=== PATIENT | female | born 1935 | race Caucasian/White ===

== ENCOUNTER 2016-07-27 15:40 | Inpatient (IN) | payer MEDICARE, MEDICAID ==
[~2016-07-27] VITALS: Ht 157.5 cm; Wt 75.1 kg
--- NOTE | ~2016-07-27 | OR ---
PATIENT'S NAME: FELICIA LOMBARDO [facility] AGE: 80 Y [address] ROOM: [address] [address] LOCATION: [facility] [place] DATE: 07/27/2016 OR/Procedure Report DISCHARGE DATE: FAMILY PHYSICIAN: Jin Orozco MD ATTENDING PHYSICIAN: Karmen Greer SURGEON: Frida Landis MD PARAPROFESSIONAL AIDE TEACHER: DATE OF PROCEDURE: 07/28/2016 PREOPERATIVE DIAGNOSES: 1. Acute renal failure. 2. Severe and bilateral hydronephrosis. 3. History of severe radiation cystitis. POSTOPERATIVE DIAGNOSES: 1. Acute renal failure. 2. Severe and bilateral hydronephrosis. 3. History of severe radiation cystitis. PROCEDURE: Cystoscopy with attempted retrogrades, but unable to identify ureteral orifices on either side. ANESTHESIA: General. INDICATION: This is an 80-year-old lady admitted with acute renal failure. Her creatinine today is 5.3. She had an ultrasound done, which revealed severe and bilateral hydronephrosis. The right kidney was atrophic. We have relevant history together. Over 3 years ago, she was evaluated for gross hematuria. She was felt to have radiation cystitis at that time. Time has proven that diagnosis is likely correct. She had no malignant changes. 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 With the severe hydronephrosis and the acute change in her creatinine, Dr. Greer had consulted me. Our plan is to proceed with cystoscopy. Hopefully, we will be able to find orifices. If not, she will have to consider a percutaneous drainage. DESCRIPTION OF PROCEDURE: Having obtained her informed consent, the patient was taken to the operating room. She was prepped and draped sterilely and in lithotomy position. A brief general anesthetic was administered. A 21-Portuguese cystoscope was assembled and guided into the urethra. Fortunately, the mucosa is much improved from previous. She has some scattered areas consistent with her diagnosis of radiation cystitis. She has no papillary lesions. However, she has scarring and trabeculation consistent with her history of radiation. We spent a great deal of time using the 30- and 70-degree lenses and probing PATIENT'S NAME: FELICIA LOMBARDO [facility] AGE: 80 Y [address] ROOM: [address] [address] LOCATION: [facility] [place] ADMIT DATE: 07/27/2016 OR/Procedure Report DISCHARGE DATE: FAMILY PHYSICIAN: Jin Orozco MD ATTENDING PHYSICIAN: Karmen Greer gently with a guidewire. I cannot find anything that resembles orifices. With her creatinine of 5 and the severe hydronephrosis, she is not effluxing anywhere. Ultimately, I was unable to identify either side. The bladder was drained and the case was concluded. The patient tolerated the procedure well. Blood loss was negligible. No specimens were sent. The patient returned to the Recovery, awake and in stable condition. I will recommend bilateral percutaneous nephrostomy drainage with internalization of stents. FRIDA LANDIS MD SFH/modl /[id number] CC: MD Jono Clark MD d: 07/28/16 2209 t: 08/01/16 1011, OPERATIVE SUMMARY
--- NOTE | ~2016-07-27 | HP ---
PATIENT'S NAME: FELICIA LOMBARDO [facility] AGE: 80 Y [address] ROOM: [place] [address] [place] [facility] [place]: 07/27/2016 History & Physical DISCHARGE DATE: FAMILY PHYSICIAN: Jin Orozco MD ATTENDING PHYSICIAN: Karmen Greer DATE OF SERVICE: CHIEF COMPLAINT: Elevated BUN and creatinine. HISTORY OF PRESENT ILLNESS: This is an 80-year-old female with a history of diabetes for the past 5 to 10 years. She also has a history of hypertension. She has a history of retinopathy but no neuropathy. The patient presented yesterday to her primary care physician, Dr. Jin Orozco clinic. Her creatinine was found to be elevated at that point of time. She was then referred to Dr. Greer's clinic today. Dr. Greer then asked the hospitalist team to admit the patient for acute kidney injury. The patient's creatinine was found to be 5.43 yesterday in clinic. She states that she has been tired for the past couple years. She complains of urinary incontinence and also some burning sensation. Denies any NSAID use. No ELDER inhibitor or ARB use reported. Her baseline creatinine in 2016 about 3 months ago was 1.99. The patient had a history of obstructive uropathy in 2012, that was managed by Dr. Gutierrez. She currently does not report any abdominal pain. Denies any chest pain. Denies any shortness of breath. Denies any head trauma, loss of consciousness, seizures. No other complaints at this point of time. REVIEW OF SYSTEMS: A 10-point review of system was done and was otherwise negative except as mentioned above. ALLERGIES: 1. SULFA. 2. PENICILLIN. HOME MEDICATIONS: Per JUL. PAST MEDICAL HISTORY: 1. Diabetes mellitus. 2. Diabetic retinopathy. 3. Hypertension. PATIENT'S NAME: FELICIA LOMBARDO [facility] AGE: 80 Y [address] ROOM: [place] [address] [place] [facility] [place]: 07/27/2016 History & Physical DISCHARGE DATE: FAMILY PHYSICIAN: Jin Orozco MD ATTENDING PHYSICIAN: Karmen Greer 4. Obesity. 5. Peptic ulcer disease. 6. Depression. 7. Dyslipidemia. 8. Left hydronephrosis in the past. PAST SURGICAL HISTORY: 1. Cholecystectomy. 2. Cardiac catheterization. 3. Cystoscopy. FAMILY HISTORY: Mother with kidney problem. Son with pancreatic cancer and also kidney issues. SOCIAL HISTORY: Lives in [place], [place]. No history of alcohol or tobacco is reported. PHYSICAL EXAMINATION: VITAL SIGNS: Temperature 97.5, pulse 74 and regular, respirations 20, blood pressure 138/77, saturation 100% on room air. GENERAL: The patient is alert and oriented x3. Answers all questions appropriately. No acute distress. HEENT: Head: Normocephalic, atraumatic. Pupils are equal, round, and reactive to light. Extraocular muscles are intact. Oropharynx moist. NECK: Supple. No nuchal rigidity. No lymphadenopathy. HEART: Regular rate and rhythm. LUNGS: Clear to auscultation bilaterally. ABDOMEN: Soft, nontender, nondistended. Bowel sounds are present. EXTREMITIES: No clubbing, cyanosis, or edema. VASCULAR: Pulses 2+ distally bilaterally. NEUROLOGIC: The patient is alert and oriented x3. Follows all commands. Moves all extremities. Cranial nerves 2 through 12 are grossly intact. DIAGNOSTIC STUDIES: A CBC was done, that showed a white count of 7.3, hemoglobin 9.3, hematocrit 28.7, platelets 159. A CMP showed sodium 139, potassium 4.6, chloride 108, bicarb 20, BUN 58, creatinine 5.4, glucose 126, calcium 8.7. Total protein 7.2, albumin 3.2, AST 20, ALT 20, alkaline phosphatase 130, total bilirubin 0.4, anion gap 15.6, globulin 4.0. GFR 8. UA showed 3+ turbidity with a pH of 6.1, leukocytes and bacteria is pending at this point of time. Ultrasound of the kidney has been ordered and is pending at this point of time. UA is pending. ASSESSMENT AND PLAN: PATIENT'S NAME: FELICIA LOMBARDO [facility] AGE: 80 Y [address] ROOM: [address] [address] [place] [facility] [place]: 07/27/2016 History & Physical DISCHARGE DATE: FAMILY PHYSICIAN: Jin Orozco MD ATTENDING PHYSICIAN: Karmen Greer Harlan An 80-year-old female presenting with acute kidney injury. 1. Acute kidney injury. Unsure about the cause of acute kidney injury. The patient was replaced on bicarb drip per Renal recommendations. Further plan per Dr. Greer. Renal ultrasound is pending at this point of time. 2. Hypertension. Continue home medication. 3. Diabetes. We will do regular Accu-Cheks for the patient. She is currently not on any antidiabetic medication. 4. Dyslipidemia. Continue statin. 5. Hypertension. Continue home medication. 6. Depression. Continue Celexa. 7. Deep vein thrombosis prophylaxis. SCD to legs. CODE STATUS: Full code. Discussed with the patient at the time of admission. GARRET DAVID MD MT/altagracia /[id number] D: [id number] T: [id number] HISTORY & PHYSICAL
--- NOTE | ~2016-07-27 | DS ---
PATIENT'S NAME: FELICIA LOMBARDO [facility] AGE: 80 Y [address] ROOM: [address] [address] LOCATION: [facility] [place] ADMIT DATE: 07/27/2016 Discharge Summary DISCHARGE DATE: 07/29/2016 FAMILY PHYSICIAN: Jin Orozco MD ATTENDING PHYSICIAN: Jono Greer PRIMARY DIAGNOSES: 1. Acute kidney injury. 2. Bilateral hydronephroses. 3. Obstructive uropathy. 4. Radiation cystitis. 5. History of gynecologic cancer, status post surgery and radiation treatment. 6. Diabetes mellitus, type 2. 7. Essential hypertension. 8. Hyperlipidemia. 9. Iron deficiency anemia. 10. Peptic ulcer disease. 11. Diabetic retinopathy. 12. Prior history of left-sided hydronephrosis, status post cystoscopy with stent placement in the distant past. OPERATIONS/PROCEDURES: Cystoscopy with attempt at ureteral stent placement was performed on 07/28/[address] Tod Gutierrez, urologist; unsuccessful. HISTORY OF PRESENTING ILLNESS AND REASON FOR ADMISSION: Please refer to the H and P dictated on 07/27/2016. HOSPITAL COURSE: The patient was admitted to the hospital as noted above with a presumptive diagnoses of acute kidney injury and severe bilateral hydronephroses. This was identified by ultrasound testing on the date of her admission. Urology was consulted. It was recommended to proceed with cystoscopy and bilateral ureteral stent placements. This was attempted on 07/28/2016 as described above, but Dr. Gutierrez was unsuccessful at identifying either orifice. The procedure was abandoned, and it was recommended to proceed with nephrostomy tube placement. Unfortunately, no interventional radiologist was available at this facility for more than 48 hours. It was felt by Nephrology and recommended that the procedure would be more urgent given that the patient has limited renal reserve, an atrophic right kidney, and persistently elevated creatinine, as well as apparent oliguria. I discussed this at some length with the patient and her family, and they did request transfer out. We did discuss the case with Dr. Rodriguez, hospitalist, at [facility] in [place], and she agreed to accept the patient in transfer. PATIENT'S NAME: FELICIA LOMBARDO [facility] AGE: 80 Y [address] ROOM: [address] [address] LOCATION: [facility] [place] ADMIT DATE: 07/27/2016 Discharge Summary DISCHARGE DATE: 07/29/2016 FAMILY PHYSICIAN: Jin Oorzco MD ATTENDING PHYSICIAN: Jono Greer DISCHARGE INSTRUCTIONS: DIET: NPO except for medications. ACTIVITY: She will remain on bedrest. MEDICATIONS: 1. Loratadine 10 mg p.o. q.48 hours. 2. Harrison 5/325 one tablet p.o. q.4 hours p.r.n. 3. D5 half-normal saline to run at 100 mL/hour. 4. Lidocaine for IV starts. 5. Iron 325 mg p.o. daily. 6. Citalopram 20 mg p.o. daily. 7. Vitamin D3 at 2000 units p.o. daily. 8. Atorvastatin 20 mg p.o. daily. 9. Protonix 40 mg p.o. daily. 10. Glucagon 1 mg subcu daily p.r.n. hypoglycemia. 11. D50 at 25 mL IV p.r.n. hypoglycemia. 12. Glucose tablet 16 g p.o. daily p.r.n. hypoglycemia. 13. Insulin aspart per sliding scale. 14. Timolol ophthalmic drops 0.5% applied b.i.d. 15. Xalatan ophthalmic drops 0.005% applied at h.s. 16. Carvedilol 12.5 mg p.o. b.i.d. FOLLOWUP: She will follow up with Dr. Rodriguez at the [facility] later today. She will be transported by ambulance. CONDITION ON DISCHARGE: Fair. Total time spent on discharge process is 45 minutes. MD MADELINE SHERIFF/altagracia /[id number] d: 07/29/16 1402 t: 07/30/16 1550, DISCHARGE SUMMARY
--- NOTE | ~2016-07-27 | CON ---
PATIENT'S NAME: FELICIA LOMBARDO [facility] AGE: 80 Y [address] ROOM: [address] [address] LOCATION: [facility] [place] ADMIT DATE: 07/27/2016 Consultation DISCHARGE DATE: FAMILY PHYSICIAN: Jin Orozco MD ATTENDING PHYSICIAN: Karmen Nunn DATE OF CONSULTATION: 07/27/2016 REQUESTING PHYSICIAN: Fritz Miner M.D. REASON FOR CONSULTATION: Elevated BUN and creatinine. HISTORY OF PRESENT ILLNESS: The patient is an 80-year-old white female with a history of diabetes for the last 5 to 10 years. She does have history of retinopathy, but no neuropathy. She has been hypertensive for quite sometime, but claims that her blood pressure has been fairly well controlled. The patient was in her usual state of health, and she was supposed to see her family physician for routine medical needs and she, however, had to defer this for quite some time because her son was ill and unfortunately he in April 2016. Yesterday, she went to see Dr. Jin Orozco and her creatinine was 5.43. At this point, she did not complain of any nausea or vomiting. She has been tired for the last 2 years, but she did not complain of excessive sleepiness. She has baseline dyspnea on exertion. She has been incontinent. There are no new medications. No nonsteroidals or CORNELISU-2 inhibitors. No ELDER inhibitors or ARBs. Her baseline creatinine from May 2013 was 1.5. On April 05, 2016, creatinine was 1.99. The patient did have a CT scan of the abdomen or pelvis on April 23, 2013, and there was moderate left-sided hydronephrosis, and she was taken care by Dr. Tod Gutierrez. Since the records have been purged, I do not know the details of this. The patient reports that she had a cancer of the uterus years ago and she was treated with radiation therapy. It seems that her ureteral obstruction could have been from radiation. The patient is currently admitted to the hospital for further workup and management. She did not notice any change in her urine output. ALLERGIES: ALLERGIC TO SULFA AND PENICILLIN. CURRENT MEDICATIONS: 1. Vitamin D3 2000 International Units a day. 2. Citalopram 20 mg a day. 3. Loratadine 10 mg a day. 4. Omeprazole 20 mg a day. PATIENT'S NAME: FELICIA LOMBARDO [facility] AGE: 80 Y [address] ROOM: [id number] [place], [place] [address] LOCATION: [facility] [place] ADMIT DATE: 07/27/2016 Consultation DISCHARGE DATE: FAMILY PHYSICIAN: Jin Orozco MD ATTENDING PHYSICIAN: Karmen Nunniaz 5. Spironolactone 25 mg a day. 6. Carvedilol 12.5 mg twice a day. 7. Atorvastatin 20 mg a day. 8. Iron 325 mg a day. PAST MEDICAL HISTORY: Diabetes mellitus, diabetic retinopathy, obesity, hypertension, peptic ulcer disease, depressive illness, hyperlipidemia, and left-sided hydronephrosis by history. PAST SURGICAL HISTORY: Cholecystectomy, cardiac catheterization, and cystoscopy. FAMILY HISTORY: Mother had kidney problem, but she was not on dialysis. Her son had history of pancreatic cancer and also had some kidney issues. Unfortunately, her son last year. SOCIAL HISTORY: The patient lives in [place], [place]. She is . She has 2 grown children. 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 No history of tobacco or alcohol. PHYSICAL EXAMINATION: GENERAL: The patient is an 80-year-old, white female, looks slightly pale. Not in acute distress. VITALS SIGNS: Temperature 98.6, pulse is 68, and systolic blood pressure 130 diastolic 64. Weight is 166.2 pounds. HEENT: Head is normocephalic. Pupils are round and equal. Normal eyelid and pale conjunctivae. Oral cavity clear. She has dentures. NECK: Trachea is central. No thyromegaly. No bruit. HEART: Sounds are audible. No added gallop or murmur. There is no peripheral rub. Pulses regular in rhythm. LUNGS: Bilaterally clear to auscultate. No intercostal retraction. ABDOMEN: Soft, nontender, and could not palpate the liver or spleen. No distended bladder palpable. EXTREMITIES: No clubbing or cyanosis. SKIN: No sign of vasculitis. LYMPHATICS: Could not palpate any lymphatics HIGHER PSYCHIATRIC FUNCTION: She has normal speech and memory. REVIEW OF SYSTEMS: GENERAL: She denies any fever, chills, or rigors. She lost 80 pounds intentionally over the last 3 years. She lost a lot of weight in 3 years and she is trying to lose weight. Her weight went down from 240 pounds to 158 pounds. She has approximately lost 80 pounds. Her diabetes, she is currently on diet control only. She has some sinus congestion, dyspnea on exertion, and PATIENT'S NAME: FELICIA LOMBARDO [facility] AGE: 80 Y [address] ROOM: [place] [address] LOCATION: [facility] [place] ADMIT DATE: 07/27/2016 Consultation DISCHARGE DATE: FAMILY PHYSICIAN: Jin Orozco MD ATTENDING PHYSICIAN: Karmen Nunn urinary incontinence. She is tired all the time. She has been weak over the last 1 week. HEENT: Denies any sore throat or sinus congestion. CARDIOVASCULAR: Denies any chest pain. RESPIRATORY: Denies any shortness of breath, cough, or wheezing. GASTROINTESTINAL: Occasional nausea. GENITOURINARY: Denies any dysuria, frequency. She has had hematuria in 2012. MUSCULOSKELETAL: Denies any joint pain or swelling. SKIN: Denies any rash or pruritus. IMMUNOLOGIC: Denies any allergies or hay fever. LYMPHATICS: Denies any lymph node enlargement HEMATOLOGIC: Denies easy bruising. ENDOCRINE: Denies any heat or cold intolerance. OUTPATIENT CODER: She has a history of uterine cancer. PSYCHIATRY: Denies any sadness, crying spells, poor concentration, or panic attack at this time, but she is on antidepressant. LABORATORY DATA: Urinalysis from April 05, 2016, shows protein more than 300 and blood trace. WBC more than 200, RBC less than 5. Blood work from July 27, 2015, shows a glucose 92, BUN 56, creatinine of 5.4, GFR of 7, sodium 136, potassium 4.9, chloride 101, bicarb 21, and calcium 8.4. ASSESSMENT: 1. [id number] kidney injury. Etiology is unclear. The patient appears slightly dehydrated, but we cannot rule out possibility of obstructive uropathy. As mentioned, however, she had left-sided hydronephrosis in 2012, and she had a cystoscopy at that time. The patient has been on omeprazole, which is her baseline medicine, but we cannot rule out possibility of interstitial nephritis. I notice that in March of 2016, the patient had proteinuria, but at that time had plenty of WBCs as well as bacteria, so I do wonder whether she had urinary tract infection at that time. 2. Hypertension. 3. Diabetes mellitus. 4. Diabetic neuropathy. 5. Metabolic acidosis. 6. History of uterine cancer. 7. History of obstructive uropathy. PLAN: I agree with her hospitalization and I will give her IV D5W with 3 amps of bicarbonate at a rate of 100 mL an hour for approximately 2 L. We will check urine for microscopic examination. We will check stat renal ultrasound to rule out obstructive processes. If there is any hydronephrosis, we will PATIENT'S NAME: FELICIA LOMBARDO [facility] AGE: 80 Y [address] ROOM: [place] [address] LOCATION: [facility] [place] ADMIT DATE: 07/27/2016 Consultation DISCHARGE DATE: FAMILY PHYSICIAN: Jin Orozco MD ATTENDING PHYSICIAN: Karmen Nunn invite urologist. I will hold her omeprazole for now. We will follow her renal function closely. She does not have any gross uremic features and does not need to be started on dialysis at this time. If she has active sediments in the urine, then will probably have to proceed with a CT-guided kidney biopsy. I would like to thank Dr. Miner for allowing me to participate in this patient's care. M FRANK NUNN MD MII/modl /[id number] CC: Jin Orozco MD d: 07/27/16 1658 t: 07/31/16 1000, CONSULTATION REPORT
[2016-07-27] MEDS ORDERED: TIMOPTIC XE 0.5%5 ML OPHTH (16:47)
[2016-07-27] MEDS ORDERED: XALATAN2.5 ML OPHTH (16:47)
[2016-07-27] MEDS ORDERED: LIPITOR20 M1 PO (16:48)
[2016-07-27] MEDS ORDERED: CELEXA20 MG PO (16:48)
[2016-07-27] MEDS ORDERED: ALDACTONE25 MG PO (16:48)
[2016-07-27] MEDS ORDERED: CLEAR EYES COMP15 ML OPHTH (16:49)
[2016-07-27] MEDS ORDERED: COREG12.5 MG PO (16:49)
[2016-07-27] MEDS ORDERED: FEOSOL325 MG PO (16:49)
[2016-07-27] MEDS ORDERED: PRILOSEC20 MG PO (16:50)
[2016-07-27] MEDS ORDERED: CLARITIN10 M3 PO (16:50)
[2016-07-27] MEDS ORDERED: VITAMIN D-32000 UNI1 PO (16:50)
--- NOTE | 2016-07-27 18:06 | NUR ---
PT is 80 y/o female admit for acute kidney injury for hospitalist. PT allergy to PCN,sulfa,and clindamycin. Red bracelet on. Alert and oriented x3. Resides at home by herself. She states her neighbors look in on her. Hx htn,NV,hyper- cholest,gerd,hiatal hernia,ulcer,endometrial CA,hematuria,sinus problems, glaucoma,left leg N/T. PT ambulates with a walker,which is at bedside. She states she saw her primary care yesterday and had lab done which showed abnormal kidney function. He set her up to see today and he sent her here.
[2016-07-27 19:22] LABS: BASOPHIL % 0.4 %; EOSINOPHIL # 0.1 K/uL (0.0-0.5); EOSINOPHIL % 1.8 %; HEMATOCRIT 28.7 % (30.0-46.0); HEMOGLOBIN 9.6 g/dL (10.0-15.0); IMMATURE GRANULOCYTE % 0.4 %; LYMPHOCYTE # 2.2 K/uL (0.8-4.0); LYMPHOCYTE % 30.4 %; MCH 28.7 pg (27.0-34.0); MCHC 33.4 gm/dL (32.0-36.5); MCV 85.9 fl (83.0-98.0); MONOCYTE # 0.5 K/uL (0.0-1.0); MPV 9.5 fl (9.4-12.4); NEUTROPHIL # (ANC) 4.4 K/uL (1.8-7.8); NRBC % 0 /100WBC (0-0.00); PLATELET COUNT 159 K/uL (150-450); RDW-CV 13.5 % (11.9-14.6); WBC 7.3 K/uL (4.0-11.0)
[2016-07-27 19:23] LABS: RBC 3.34 M/uL (3.00-5.00)
[2016-07-27 19:38] LABS: ALBUMIN 3.2 gm/dL (3.5-5.0); ANION GAP 15.6 (10.0-19.0); CALCIUM 8.7 mg/dL (8.5-10.5); POTASSIUM 4.6 mMol/L (3.7-5.1); TOTAL BILIRUBIN 0.4 mg/dL (0.0-1.5); TOTAL PROTEIN 7.2 g/dL (6.0-8.4)
[2016-07-27 19:43] LABS: CREATININE 5.4 mg/dL (0.5-1.1)
[2016-07-27 20:17] LABS: BILIRUBIN URINE NEGATIVE (NEGATIVE); BLOOD URINE 250 /UL (NEGATIVE); COLOR URINE YELLOW (YELLOW); GLUCOSE URINE NEGATIVE (NEGATIVE); KETONE URINE NEGATIVE (NEGATIVE); LEUKOCYTES URINE 500 /UL (NEGATIVE); NITRITE URINE NEGATIVE (NEGATIVE); PROTEIN URINE 30 mg/dL (NEGATIVE); SPEC GRAVITY URINE 1.005 (1.003-1.035); TURBIDITY URINE 3+ (CLEAR); UROBILINOGEN URINE NORMAL (NORMAL)
[2016-07-27 20:28] LABS: AMORPHOUS URINE 1+ (NEGATIVE); BACTERIA URINE MANY (NEGATIVE); WBC URINE FULL FIELD #/HPF (NEGATIVE)
[2016-07-27 20:29] LABS: WBC CLUMPS URINE MODERATE (NEGATIVE)
--- NOTE | 2016-07-28 03:47 | NUR ---
Significant Event: Patient is alert and oriented x 3. VSS on room air. VS q4 hours. Up with 1 assist, walker, and gait belt to bathroom. Incontinent of urine. Denies any pain. ACHS accuchecks. Mild scale. Left wrist IV with D5 sodium bicarb running at 100 ml/hr. Patient is pleasant and cooperative with cares. Follow up:
[2016-07-28 06:04] LABS: ALBUMIN 2.8 gm/dL (3.5-5.0); ANION GAP 13.4 (10.0-19.0); CALCIUM 8.2 mg/dL (8.5-10.5); PHOSPHORUS 4.9 mg/dL (2.5-4.9); POTASSIUM 4.4 mMol/L (3.7-5.1)
[2016-07-28 06:05] LABS: CREATININE 5.3 mg/dL (0.5-1.1)
--- NOTE | 2016-07-28 12:04 | NUR ---
SPOKE TO PATIENT REGARDING CM AND OUR ROLE. PATIENT IS PLANNING ON RETURNING HOME ONCE SHE IS READY FOR DISCHARGE. PATIENT DOES NOT ANTCIPATE ANY DISCHARGE NEEDS AT THIS TIME. CM WILL FOLLOW NEEDED.
--- NOTE | 2016-07-28 12:18 | NUR ---
I have examined the student charting and find it acceptable. Kath PERALTA
--- NOTE | 2016-07-28 14:29 | NUR ---
Patient is alert and oriented, VSS, on room air. 1 assist with walker and gait belt. IV to L) wrist infusing D5W with sodium bicarb at 100ml will be locked when bag is complete. Went down for a cystoscopy with bilateral stent placement around 1330. Accurate I/Os needed. Will continue to monitor urine output.
[2016-07-29 05:00] LABS: BASOPHIL % 0.2 %; HEMATOCRIT 28.9 % (30.0-46.0); HEMOGLOBIN 10.1 g/dL (10.0-15.0); IMMATURE GRANULOCYTE # 0.1 K/uL (0.0-0.3); IMMATURE GRANULOCYTE % 0.9 %; LYMPHOCYTE # 0.9 K/uL (0.8-4.0); LYMPHOCYTE % 13.4 %; MCH 28.7 pg (27.0-34.0); MCHC 34.9 gm/dL (32.0-36.5); MCV 82.1 fl (83.0-98.0); MONOCYTE # 0.3 K/uL (0.0-1.0); MONOCYTE % 4.1 %; MPV 9.2 fl (9.4-12.4); NEUTROPHIL # (ANC) 5.4 K/uL (1.8-7.8); NEUTROPHIL % 81.4 %; NRBC % 0 /100WBC (0-0.00); PLATELET COUNT 155 K/uL (150-450); RBC 3.52 M/uL (3.00-5.00); RDW-CV 13.6 % (11.9-14.6); WBC 6.7 K/uL (4.0-11.0)
[2016-07-29 05:15] LABS: ALBUMIN 2.9 gm/dL (3.5-5.0); ANION GAP 16.9 (10.0-19.0); CALCIUM 8.3 mg/dL (8.5-10.5); POTASSIUM 3.9 mMol/L (3.7-5.1)
--- NOTE | 2016-07-29 05:26 | NUR ---
Significant Event: Pt alert and oriented. UP standby assist with walker and shoes when out of bed. IV saline locked. Is incont of urine at all times. Home eye drops at bedside. Cont to monitor. Follow up:
[2016-07-29 05:32] LABS: CREATININE 5.2 mg/dL (0.5-1.1); PHOSPHORUS 1.2 mg/dL (2.5-4.9)
--- NOTE | 2016-07-29 14:05 | NUR ---
Recieved bed acceptance from Rahat Nguyen at [facility] about 1400. Stated room number would be 7721 in the [facility]. Report is to be called to [phone]. Ambulance crew alerted and notified of transfer. Gave report to dispatch.
--- NOTE | 2016-07-29 14:10 | NUR ---
Patient is an 80 year old female. She is alert and oriented, standy assist with a wheeled walker and gait belt. ACHS accuchecks on mild sliding scale, 2 units given for lunch. Diet controlled at home. She is incontinent of urine at times. She had an eye surgery earlier this week for cataracts on her right eye. History of hypertension, uterine cancer with radiation, arthritis, GERD, [place], glaucoma, and left leg cramping. She has glasses, a hearing aid in her right ear and a bruise to her left forearm. She has an IV in her left inner forearm that is saline locked. She went down for a cystoscopy with stent placement yesterday for her bilateral hydronephrosis but was not able to have the stents placed. Her vital signs have been stable, she is on room air.
[2016-12-04] MEDS ORDERED: COLESTID1 GM PO (12:40)
[2016-12-11] MEDS ORDERED: CLARITIN10 MG PO (11:25)
[2016-12-11] MEDS ORDERED: PRILOSEC20 MG PO (11:26)
[2016-12-11] MEDS ORDERED: LOPRESSOR25 MG PO (11:27)
[2016-12-11] MEDS ORDERED: SPIRONOLACTONE25 MG PO (11:27)
[2016-12-11] MEDS ORDERED: ARTIFICIAL TEA1 EACH OPHTH (11:30)
== END 2016-07-29 14:34 | disposition hospice, home (50) | DRG 683 ==
LOC: GMSU 15:51
PROVIDERS: Family Medicine; ADMIT Internal Medicine Nephrology
PROC: 0TJB8ZZ Inspection of Bladder, Via Natural or Artificial Opening Endoscopic (ICD-10-PCS; principal; 2016-07-28)
DX: N17.9 Acute kidney failure, unspecified (principal); N30.40 Irradiation cystitis without hematuria; E87.2 Acidosis; N13.9 Obstructive and reflux uropathy, unspecified; E11.22 Type 2 diabetes mellitus with diabetic chronic kidney disease; E86.0 Dehydration; N13.30 Unspecified hydronephrosis; E11.319 Type 2 diabetes mellitus with unspecified diabetic retinopathy without macular edema; I12.9 Hypertensive chronic kidney disease with stage 1 through stage 4 chronic kidney disease, or unspecified chronic kidney disease; N18.9 Chronic kidney disease, unspecified; E78.5 Hyperlipidemia, unspecified; D50.9 Iron deficiency anemia, unspecified; K27.9 Peptic ulcer, site unspecified, unspecified as acute or chronic, without hemorrhage or perforation; F32.9 Major depressive disorder, single episode, unspecified; Z85.42 Personal history of malignant neoplasm of other parts of uterus; R32 Unspecified urinary incontinence; D63.1 Anemia in chronic kidney disease
CPT/HCPCS: C1769; J7030; J7060

== ENCOUNTER → 2016-12-11 | Day surgery (SDC) | payer MEDICARE, MEDICAID ==
[~2016-12-11] VITALS: Ht 157.5 cm; Wt 75.0 kg
[~2016-12-11] MED LIST: ALDACTONE25 MG PO; ARTIFICIAL TEA1 EACH OPHTH; CELEXA20 MG PO; CLARITIN10 M3 PO; CLARITIN10 MG PO; CLEAR EYES COMP15 ML OPHTH; COLESTID1 GM PO; COREG12.5 MG PO; FEOSOL325 MG PO; LIPITOR20 M1 PO; LOPRESSOR25 MG PO; PRILOSEC20 MG PO; SPIRONOLACTONE25 MG PO; TIMOPTIC XE 0.5%5 ML OPHTH; VITAMIN D-32000 UNI1 PO; XALATAN2.5 ML OPHTH
--- NOTE | ~2016-12-11 | OR ---
PATIENT'S NAME: FELICIA [facility]OMBARDO [facility] AGE: 81 Y [address] ROOM: [place] [id number] LOCATION: [facility] ADMIT DATE: 12/11/2016 OR/Procedure Report DISCHARGE DATE: FAMILY PHYSICIAN: Jin Orozco MD ATTENDING PHYSICIAN: Tod Landis SURGEON: Tod Landis MD [place]AGE CALLER: DATE OF PROCEDURE: 12/11/2016 PREOPERATIVE DIAGNOSES: 1. Chronic renal failure. 2. Bilateral hydroureteronephrosis. 3. Bilateral retained stents. POSTOPERATIVE DIAGNOSES: 1. Chronic renal failure. 2. Bilateral hydroureteronephrosis. 3. Bilateral retained stents. PROCEDURES: 1. Cystoscopy with retrogrades. 2. Bilateral stent exchange. ANESTHESIA: Sedation. INDICATION: This is an 81-year-old lady with the above-noted diagnoses. She had presented in the spring with acute renal failure. 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 She has had gross hematuria also. Orifices were not identifiable. She ended up with bilateral percutaneous nephrostomy tubes. Ultimately, the stents were internalized. She has been getting along relatively well, and she presents for routine stent change. It is noted that she has not had any gross hematuria. It is also noted that her creatinine has been relatively stable at 2.5 to 2.75. DESCRIPTION OF PROCEDURE: Having obtained her informed consent, the patient was taken to cystoscopy suite. She was prepped and draped sterilely and in lithotomy position. IV sedation was administered. A 21-Ecuadorean cystoscope was assembled and guided into the urethra. The course of the urethra was unremarkable. The bladder itself was remarkable for 2 very large-bore stents that were internalized by Interventional Radiology. They were at least 8- Ecuadorean. They were larger then the 7-Ecuadorean stents that we ultimately replaced them with. PATIENT'S NAME: FELICIA LOMBARDO [facility] AGE: 81 Y [address] ROOM: [place] [id number] LOCATION: [facility] ADMIT DATE: 12/11/2016 OR/Procedure Report DISCHARGE DATE: FAMILY PHYSICIAN: Jin Orozco MD ATTENDING PHYSICIAN: Tod Landis Fluoroscopy was undertaken. The stents were in good position. Her orifices were pushed laterally and cephalad. With the anatomic change, we could not identify orifices previously. I was careful not to lose our stent access. On the left side, I withdrew the stent to the meatus. I was able to get the wire to go through it. I then passed an open-ended catheter over the wire. With her creatinine as it is and having not been studied, I went ahead and shot retrogrades. She had some residual dilation. I suspect it is chronic and will not change. I do not believe the stents were obstructed. She had symmetric and a similar degree of residual dilation on the right side on retrograde study. Before studying the right side, I placed a 7 x 24 double-J stent over the guidewire on the left. We had a nice level of placement cystoscopically and fluoroscopically. The above-noted right-sided retrograde was then obtained, and a similar stent exchange was done on that side. At the conclusion, the bladder was drained. She tolerated it well. Blood loss was negligible. No specimens were sent. The patient tolerated the procedure well. The patient returned to the outpatient recovery area awake and in stable condition. TOD LANDIS MD [facility]/modl /[id number] CC: Jin Orozco MD d: 12/11/16 1339 t: 12/12/16 1023, OPERATIVE SUMMARY
[2016-12-11 11:40] LABS: BASOPHIL % 0.4 %; EOSINOPHIL # 0.2 K/uL (0.0-0.5); EOSINOPHIL % 1.7 %; HEMOGLOBIN 10.9 g/dL (10.0-15.0); IMMATURE GRANULOCYTE % 0.3 %; LYMPHOCYTE # 1.8 K/uL (0.8-4.0); LYMPHOCYTE % 19.6 %; MCH 28.1 pg (27.0-34.0); MCV 85.1 fl (83.0-98.0); MONOCYTE # 0.7 K/uL (0.0-1.0); MONOCYTE % 7.5 %; NEUTROPHIL # (ANC) 6.3 K/uL (1.8-7.8); NEUTROPHIL % 70.5 %; NRBC % 0 /100WBC (0-0.00); PLATELET COUNT 222 K/uL (150-450); RBC 3.88 M/uL (3.00-5.00)
[2016-12-11 11:55] LABS: ANION GAP 12.4 (10.0-19.0); CALCIUM 8.5 mg/dL (8.5-10.5); CREATININE 2.5 mg/dL (0.5-1.1); POTASSIUM 4.4 mMol/L (3.7-5.1); TOTAL BILIRUBIN 0.5 mg/dL (0.0-1.5); TOTAL PROTEIN 7.3 g/dL (6.0-8.4)
== END | disposition disaster alternative care site (69) ==
LOC: GPOC 11-07 13:00 → GSDC 10:59 → GPOC 13:00
PROVIDERS: Urology
PROC: 0T788DZ Dilation of Bilateral Ureters with Intraluminal Device, Via Natural or Artificial Opening Endoscopic (ICD-10-PCS; principal; 2016-12-11)
DX: Z46.6 Encounter for fitting and adjustment of urinary device (principal); I13.2 Hypertensive heart and chronic kidney disease with heart failure and with stage 5 chronic kidney disease, or end stage renal disease; E11.22 Type 2 diabetes mellitus with diabetic chronic kidney disease; N18.5 Chronic kidney disease, stage 5; I50.31 Acute diastolic (congestive) heart failure; D63.1 Anemia in chronic kidney disease; N13.30 Unspecified hydronephrosis; M48.06 Spinal stenosis, lumbar region; M15.9 Polyosteoarthritis, unspecified; E11.319 Type 2 diabetes mellitus with unspecified diabetic retinopathy without macular edema; Z79.899 Other long term (current) drug therapy; Z79.01 Long term (current) use of anticoagulants
CPT/HCPCS: C1769; C2617; J1956; J2001; J7030